=== PATIENT | male | born 1995 | race African-American/Black ===

== ENCOUNTER 2019-04-27 10:07 | Emergency (ER) | payer SELFPAY ==
[2019-04-27] MEDS ORDERED: KETOROLAC TROMETHAMINE INJ/PF 30 MG/1 ML SDV IV ONE (10:23)
[2019-04-27] MEDS ORDERED: ACETAMINOPHEN 325 MG TABLET PO ONE (10:23)
--- NOTE | 2019-04-27 10:27 | ER Document Report ---
ED Medical Screen (RME) - General Chief Complaint: Fever Stated Complaint: FEVER,DIZZY,HEADACHE,BACK PAIN Time Seen by Provider: 04/27/19 10:22 Mode of Arrival: Ambulatory Information source: Patient Notes: [id number] male presented to ED for complaint of body aches backache fever of 103.1 pulse of 118 chills dizziness body aches weakness. He states he also has a sore throat. Lives with his mom smokes 1 or 2 black miles a day drinks once to twice a week and works at the [employer] Patient is nontoxic in appearance at this time. Patient is alert and oriented respirations regular and unlabored speaking in full sentences I have greeted and performed a rapid initial assessment of this patient. A comprehensive ED assessment and evaluation of the patient, analysis of test results and completion of medical decision making process will be conducted by an additional ED providers. TRAVEL OUTSIDE OF THE [place] IN LAST 30 DAYS: No - Related Data Allergies/Adverse Reactions: No Known Allergies Allergy (Verified 04/27/19 10:18) Past Medical History - Social History Chew tobacco use (# tins/day): No Frequency of alcohol use: Occasional Drug Abuse: None - Immunizations Hx Diphtheria, Pertussis, Tetanus Vaccination: Yes Physical Exam - Vital signs Vitals: Temp Pulse Resp BP Pulse Ox 103.1 F H 119 H 18 130/87 H 98 04/27/19 10:14 04/27/19 10:14 04/27/19 10:14 04/27/19 10:14 04/27/19 10:14 Course - Vital Signs Vital signs: Temp Pulse Resp BP Pulse Ox 103.1 F H 119 H 18 130/87 H 98 04/27/19 10:14 04/27/19 10:14 04/27/19 10:14 04/27/19 10:14 04/27/19 10:14
[2019-04-27] MEDS ORDERED: PENICILLIN G BENZATHINE 1.2 MILLION UNIT/2 ML DISP.SYRIN IM ONE (11:12)
--- NOTE | 2019-04-27 11:15 | ER Document Report ---
ED General - General Chief Complaint: Fever Stated Complaint: FEVER,DIZZY,HEADACHE,BACK PAIN Time Seen by Provider: 04/27/19 10:22 Mode of Arrival: Ambulatory TRAVEL OUTSIDE OF THE [place] IN LAST 30 DAYS: No - HPI Notes: 24-year-old otherwise healthy male presents with sore throat body aches and not feeling well.Gradual onset over the last day or 2. Some fever and chills as well. Overall weakness. Moderate intensity, nonradiating. Moderate sore throat. Worse with swallowing. No other modifying factors, no other associated symptoms, no other provocative or palliative factors. Patient has done well throughout his course, is discharged home, received Bicillin LA, return if worsening. - Related Data Allergies/Adverse Reactions: No Known Allergies Allergy (Verified 04/27/19 10:18) Past Medical History - General Information source: Patient - Social History Smoking Status: Current Every Day Smoker Chew tobacco use (# tins/day): No Frequency of alcohol use: Occasional Drug Abuse: None Family History: Reviewed & Not Pertinent Patient has suicidal ideation: No Patient has homicidal ideation: No Endocrine Medical History: Denies: Hx Diabetes Mellitus Type 1 - Immunizations Hx Diphtheria, Pertussis, Tetanus Vaccination: Yes Review of Systems - Review of Systems Notes: Review of systems as in the history of present illness, otherwise negative x 10 systems. Physical Exam - Vital signs Vitals: Temp Pulse Resp BP Pulse Ox 103.1 F H 119 H 18 130/87 H 98 04/27/19 10:14 04/27/19 10:14 04/27/19 10:14 04/27/19 10:14 04/27/19 10:14 - Notes Notes: General: Well developed . HEENT: Normocephalic, atraumatic. Pupils equal round reactive to light. No JVD. Pharyngeal injection, bilateral tonsillar purulence Chest: No trauma. Respiratory: Good air exchange, normal excursion. Cardiac: Regular rhythm. No murmurs or gallops. Abdomen: Soft, benign. Nondistended. Nontender. Back: No asymmetry or gross abnormality. Motor: Grossly normal power and tone. Neurologic: Alert, nonfocal. Cranial nerves II-12 are intact. Sensation intact. Vascular: Well perfused. Normal peripheral pulses. Skin: No petechiae or purpura. Course - Re-evaluation Re-evalutation: 04/27/19 11:14 Patient was evaluated by the [facility] provider prior to my evaluation. Studies / interventions have been ordered by this provider and may still be pending. Well-appearing nontoxic male with likely streptococcal pharyngitis. Of note, rapid strep screen obtained prior to my evaluation is positive. Otherwise benign examination. Will have continued IV fluids, injection Toradol, Tylenol, reassess. 04/27/19 11:15 04/27/19 11:58 Patient has done well throughout his course, is discharged home, received Bicillin LA, return if worsening. - Vital Signs Vital signs: Temp Pulse Resp BP Pulse Ox 103.1 F H 119 H 18 130/87 H 98 04/27/19 10:14 04/27/19 10:14 04/27/19 10:14 04/27/19 10:14 04/27/19 10:14 Discharge - Discharge Clinical Impression: Strep pharyngitis Condition: Good Disposition: HOME, SELF-CARE Instructions: Strep Throat ([facility]) Additional Instructions: See your primary care doctor in the next 24 to 48 hours if you are not improving
[2019-04-27] MEDS: NORMAL SALINE 1000 ML 1,000 ML IV PRN ×2 (12:33→14:00)
[2019-04-27 14:15] VITALS: BP 112/57
== END 2019-04-27 14:14 | disposition home or self-care (01) ==
LOC: ER 10:07
DX: J02.0 Streptococcal pharyngitis (principal); R50.9 Fever, unspecified; R53.1 Weakness; F17.200 Nicotine dependence, unspecified, uncomplicated
CPT/HCPCS: 87880; J1885; J0561; J7030; 96361; 96374; 96375; 99283

== ENCOUNTER 2019-05-14 02:09 | Emergency (ER) | payer OTHER ==
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
[2019-05-14 04:54] VITALS: BP 113/65
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
--- NOTE | 2019-05-14 04:56 | RADIOLOGY REPORT (SQ) ---
EXAM DESCRIPTION: XR FOOT 3 OR MORE VIEWS COMPLETED DATE/TME: 05/14/2019 02:43 CLINICAL HISTORY: 24 years, Male, bone tenderness COMPARISON: None. NUMBER OF VIEWS: 5 TECHNIQUE: 5 view right foot LIMITATIONS: None. FINDINGS: Negative for fracture or dislocation. The soft tissues are unremarkable IMPRESSION: Negative exam copyright 2011 [employer] All Rights Reserved
== END 2019-05-14 05:03 | disposition home or self-care (01) ==
LOC: ER 02:09
DX: T14.8XXA Other injury of unspecified body region, initial encounter (principal); M79.671 Pain in right foot; M79.89 Other specified soft tissue disorders; R07.81 Pleurodynia; M25.50 Pain in unspecified joint; M89.8X2 Other specified disorders of bone, upper arm; V23.4XXA Motorcycle driver injured in collision with car, pick-up truck or van in traffic accident, initial encounter
CPT/HCPCS: 99283